=== PATIENT | female | born 2000 | race Caucasian/White ===

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

== ENCOUNTER 2020-01-05 15:33 | Emergency (ER) | payer SELFPAY ==
[~2020-01-05] VITALS: Ht 162.6 cm; Wt 54.5 kg
[~2020-01-05 15:33] MED LIST: CEPHALEXIN500 M1 PO
[2020-01-05 15:45] VITALS: TEMP 98
[2020-01-05 16:39] VITALS: BP 133/80; PULSE 80
== END 2020-01-05 16:40 | disposition home or self-care (01) ==
LOC: COL.ER 15:33
DX: S60.211A Contusion of right wrist, initial encounter (principal); W01.198A Fall on same level from slipping, tripping and stumbling with subsequent striking against other object, initial encounter

== ENCOUNTER 2020-01-10 14:36 | Emergency (ER) | payer SELFPAY ==
[~2020-01-10] VITALS: Ht 162.6 cm; Wt 54.5 kg
[2020-01-10 14:39] VITALS: TEMP 97.6
[2020-01-10 15:45] VITALS: BP 118/76; PULSE 79
== END 2020-01-10 15:45 | disposition home or self-care (01) ==
LOC: COL.ER 14:36
DX: S60.211A Contusion of right wrist, initial encounter (principal); Z91.81 History of falling; Z79.2 Long term (current) use of antibiotics

== ENCOUNTER 2020-05-19 00:02 | Emergency (ER) | payer OTHER ==
[~2020-05-19] VITALS: Ht 162.6 cm; Wt 54.5 kg
[2020-05-19 00:50] VITALS: BP 115/94; PULSE 97; TEMP 98.8
== END 2020-05-19 00:50 | disposition home or self-care (01) ==
LOC: COL.ER 00:02
DX: B34.9 Viral infection, unspecified (principal); Z20.822 Contact with and (suspected) exposure to COVID-19

== ENCOUNTER 2020-09-15 14:10 | Emergency (ER) | payer SELFPAY ==
[~2020-09-15] VITALS: Ht 162.6 cm; Wt 54.5 kg
[2020-09-15] MEDS ORDERED: ZOFRAN 4MG T4 MG/TAB PO (16:25)
[2020-09-15 16:46] VITALS: BP 110/72; PULSE 91; TEMP 98.5
== END 2020-09-15 16:47 | disposition home or self-care (01) ==
LOC: COL.ER 14:10
DX: U07.1 COVID-19 (principal)

== ENCOUNTER 2022-05-03 16:35 | Emergency (ER) | payer SELFPAY ==
[~2022-05-03] VITALS: Ht 165.1 cm; Wt 54.5 kg
[~2022-05-03 16:35] MED LIST changes: +DOXYCYCLINE HY100 MG PO; +FLEXERIL 1010 MG/TAB PO; +TYLENOL 325MG325 MG PO; +ZOFRAN 4MG T4 MG/TAB PO
[2022-05-03 17:00] VITALS: TEMP 98.4
[2022-05-03 17:42] LABS: COLLECTION METHOD CLEAN CATCH
[2022-05-03 17:46] LABS: BASO # 0.1 K/mm3 (0.0-0.2); BASO % 0.9 % (0.0-2.0); EOS # 0.1 K/mm3 (0.0-0.7); EOS % 0.9 % (0.0-4.0); GRAN # 5.3 K/mm3 (1.4-6.5); GRAN % 66.1 % (42.2-75.2); HEMATOCRIT 39.8 % (37.0-47.0); HEMOGLOBIN 13.3 g/dl (12.5-16.0); LYMPH # 1.9 K/mm3 (1.2-3.4); LYMPH % 23.4 % (20.0-51.0); MEAN CELL VOLUME 79 fl (80.0-100.0); MEAN CORPUSCULAR HEMOGLOBIN 27 pg (27-31); MEAN CORPUSCULAR HGB CONC 33 g/dl (33.0-37.0); MEAN PLATELET VOLUME 9.8 fl (7.4-10.4); MONO # 0.7 K/mm3 (0.1-0.6); MONO % 8.4 % (1.7-9.3); PLATELET COUNT 332 K/mm3 (130-400); RED BLOOD COUNT 5.01 M/mm3 (4.10-5.30)
[2022-05-03 18:02] LABS: ALBUMIN 4.2 gm/dL (3.5-5.0); BILIRUBIN,TOTAL 0.5 mg/dL (0.2-1.2); CALCIUM 9.2 mg/dL (8.4-10.2); CREATININE, serum 0.88 mg/dL (0.57-1.11); POTASSIUM 3.8 mmol/L (3.5-4.5); TOTAL PROTEIN 7.5 gm/dL (6.2-8.1)
[2022-05-03 18:06] LABS: URINE BACTERIA None Seen /hpf (NONE SEEN); URINE RBC >50 /hpf (0-2)
[2022-05-03 18:16] LABS: URINE APPEARANCE Turbid (CLEAR/HAZY); URINE BLOOD 3+ (NEGATIVE); URINE COLOR Red (YELLOW); URINE GLUCOSE Negative (NEGATIVE); URINE KETONE Negative (NEGATIVE); URINE NITRATE Negative (NEGATIVE); URINE PROTEIN(semi-quant) 2+ (NEGATIVE)
[2022-05-03 19:41] VITALS: BP 122/74; PULSE 65
== END 2022-05-03 19:41 | disposition home or self-care (01) ==
LOC: COL.ER 16:35
PROVIDERS: Physician Assistant
DX: N94.6 Dysmenorrhea, unspecified (principal); R11.0 Nausea; Z91.14 Patient's other noncompliance with medication regimen; Z32.02 Encounter for pregnancy test, result negative; Z28.310 Unvaccinated for COVID-19
CPT/HCPCS: J1885; J2405; J7030; Q9967